=== PATIENT | male | born 1990 | race African-American/Black ===

== ENCOUNTER 2016-10-21 02:03 | Emergency (ER) | payer SELFPAY ==
[2016-10-21 02:04] VITALS: BP 141/84; PULSE 57; RESP 16; TEMP 98.4; O2SAT 99
--- NOTE | 2016-10-21 03:34 | PD ---
HPI Chief Complaint: Psychiatric Symptoms Time Seen by Provider: 03:33 Travel History International Travel<30 days: No Contact w/Intl Traveler<30days: No Traveled to known affect area: No History of Present Illness HPI 25-year-old male with no significant medical history and no psychiatric history presents to the emergency department for evaluation of depression. Patient states he's been under a lot of stress lately and is been feeling down. States that his mother has depression and he believes that he may need to take some medication to help with his depression. He has no suicidal or homicidal ideations. States there is no possibility that he would ever want to hurt himself. He was just hoping to come in the emergency department and get started on antidepressant to help him get out of this mood. He has no other symptoms to report at this time. [facility] Past Medical History Medical History: Denies Significant Hx Tetanus Vaccination: < 5 Years Influenza Vaccination: No Past Surgical History Surgical History: No Previous Surgery Social History Alcohol Use: No Tobacco Use: Yes (1 ppd) Substance Use: No Allergies-Medications (Allergen,Severity, Reaction): Coded Allergies: No Known Allergies (Verified , 01/29/16) Reported Meds & Prescriptions Reported Meds & Active Scripts Active Review of Systems Except as stated in HPI: all other systems reviewed are Neg Physical Exam Narrative GENERAL: Well-nourished male patient, in no acute distress SKIN: Focused skin assessment warm/dry. HEAD: Atraumatic. Normocephalic. EYES: Pupils equal and round. No scleral icterus. No injection or drainage. ENT: No nasal bleeding or discharge. Mucous membranes pink and moist. NECK: Trachea midline. No JVD. CARDIOVASCULAR: Regular rate and rhythm. No murmur appreciated. RESPIRATORY: No accessory muscle use. Clear to auscultation. Breath sounds equal bilaterally. GASTROINTESTINAL: Abdomen soft, non-tender, nondistended. Hepatic and splenic margins not palpable. MUSCULOSKELETAL: No obvious deformities. No clubbing. No cyanosis. No edema. NEUROLOGICAL: Awake and alert. No obvious cranial nerve deficits. Motor grossly within normal limits. Normal speech. PSYCHIATRIC: Flat affect; insight and judgment normal. Data Data Last Documented VS Vital Signs Date Time Temp Pulse Resp B/P Pulse Ox O2 Delivery O2 Flow Rate FiO2 10/21/16 02:04 98.4 57 16 141/84 99 Room Air MDM Medical Decision Making Medical Screen Exam Complete: Yes Emergency Medical Condition: Yes Medical Record Reviewed: Yes Differential Diagnosis Depression versus adjustment reaction disorder versus mood disorder versus personality disorder Narrative Course 25-year-old male presents to [facility] department for evaluation. Patient appears without distress. He is requesting someone to talk to about his depression. Adamantly denies suicidal or homicidal ideations. I explained the patient that we would not be started him on antidepressants here in the emergency department as we will not be following up with him. He is provided a resource packet to contact for outpatient follow-up. He agrees to return immediately with any acute worsening of symptoms. Diagnosis Primary Impression: Depressed Qualified Code: F32.9 - Reactive depression Referrals: [facility] (Out patient) [facility] Patient Instructions: Depression (ED), General Instructions Additional Instructions: Utilize outpatient resource packet for follow-up in regards to your depression Return immediately with any acute worsening of symptoms Med/Other Pt SpecificInfo: No Change to Meds Scripts No Active Prescriptions or Reported Meds Disposition: 01 DISCHARGE HOME Condition: Stable Amy Osman October 21, 2016 03:34
== END 2016-10-21 03:42 | disposition home or self-care (01) ==
LOC: NEPD 02:03
DX: F32.9 Major depressive disorder, single episode, unspecified (principal); F17.210 Nicotine dependence, cigarettes, uncomplicated
CPT/HCPCS: 99284

== ENCOUNTER 2017-07-24 18:37 | Emergency (ER) | payer OTHER ==
[~2017-07-24] VITALS: Ht 188 cm; Wt 68.0 kg
[2017-07-24 18:46] VITALS: BP 160/81; PULSE 91; RESP 20; TEMP 99.4; O2SAT 98
[2017-07-24] MEDS ORDERED: IBUPROFEN 800 MG TAB PO ONE (19:15)
[2017-07-24] MEDS ORDERED: TETANUS/DIPHTHERIA TOXOID ADULT 0.5 ML VIAL IM ONE (19:15)
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
[2017-07-24] MEDS ORDERED: IBUP1TAB7 PO (20:14)
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
== END 2017-07-24 20:52 ==
LOC: NEPD 18:37
DX: S01.111A Laceration without foreign body of right eyelid and periocular area, initial encounter (principal); S05.11XA Contusion of eyeball and orbital tissues, right eye, initial encounter; S80.211A Abrasion, right knee, initial encounter; W19.XXXA Unspecified fall, initial encounter; Z23 Encounter for immunization
CPT/HCPCS: 12011; 70450; 70486; 72125; 90471; 90714

== ENCOUNTER 2017-11-26 18:06 | Emergency (ER) | payer SELFPAY ==
[~2017-11-26] VITALS: Ht 185.4 cm; Wt 75.0 kg
[~2017-11-26 18:06] MED LIST: IBUP1TAB7 PO
[2017-11-26 18:20] VITALS: BP 113/71; PULSE 103; RESP 16; O2SAT 96
[2017-11-26 18:49] VITALS: TEMP 98.8
[2017-11-26 19:36] VITALS: PULSE 90; RESP 16
--- NOTE | 2017-11-26 19:39 | PD ---
HPI Chief Complaint: Pain: Acute or Chronic Time Seen by Provider: 18:42 Travel History International Travel<30 days: No Contact w/Intl Traveler<30days: No Traveled to known affect area: No History of Present Illness HPI 26-year-old male presents to the emergency department with complaint of right great toe pain and tingling that has been coming and going for the past 2-3 weeks. Denies injury. Says it is a "deep pain." Denies redness, swelling of the toe or foot. Denies fever, vomiting. Is ambulatory on the affected extremity. Has not taken any medications or try any treatments to alleviate his symptoms. Rates pain 3/10. Describes it as deep. Pain is spontaneous and there is no known aggravating factors. Says hot showers seems to make it feel better. He has no primary care provider. No known allergies. Denies significant past medical history. Has no other medical complaints. No other modifying factors or associated signs and symptoms. History Social History Alcohol Use: No Tobacco Use: Yes (1 ppd) Allergies-Medications (Allergen,Severity, Reaction): Coded Allergies: No Known Allergies (Verified Adverse Reaction, Unknown, 11/26/17) Reported Meds & Prescriptions Reported Meds & Active Scripts Active No Active Prescriptions or Reported Medications Review of Systems Except as stated in HPI: all other systems reviewed are Neg Physical Exam Narrative GENERAL: Well-nourished, well-developed black male patient, in no acute distress SKIN: Warm and dry. HEAD: Atraumatic. Normocephalic. EYES: Pupils equal and round. No scleral icterus. No injection or drainage. ENT: Mucosa pink and moist. Airway patent. NECK: Trachea midline. CARDIOVASCULAR: Regular rate. RESPIRATORY: No accessory muscle use. GASTROINTESTINAL: Flat MUSCULOSKELETAL: Right great toe and foot is without erythema, edema, ecchymosis ; toe is with full range of motion and sensory intact; toe is pink and warm; with full flexion and extension and good opposition; with tenderness on palpation. Toenail is intact and there are no signs of infection. No obvious deformities. No clubbing. No cyanosis. No edema. NEUROLOGICAL: Awake and alert. Oriented 3. No obvious cranial nerve deficits. Motor grossly within normal limits. Normal speech. PSYCHIATRIC: Appropriate mood and affect; insight and judgment normal. Data Data Last Documented VS Vital Signs Date Time Temp Pulse Resp B/P (MAP) Pulse Ox O2 Delivery O2 Flow Rate FiO2 11/26/17 18:49 98.8 11/26/17 18:20 103 16 113/71 (85) 96 MDM Medical Screen Exam Complete: Yes Emergency Medical Condition: No Differential Diagnosis Toe pain Narrative Course 26-year-old male with right great toe pain. There are no open wounds. There are no signs of infection. Patient denies injury. I do not suspect fracture dislocation and feel that imaging is necessary at this time. Vital signs are stable and the patient is stable for outpatient follow-up and treatment. The patient has no urgent or emergent medical complaints. There is no emergent or urgent medical need at this time. I instructed the patient to follow up with their primary care provider. A medical screening exam was performed: At the time of evaluation the presenting medical condition was determined not to be of an emergent nature. The patient was given the option of receiving additional care, but declined. Patient was given options for additional community resources from which to obtain care. The Patient Has Been advised to seek medical attention for their presenting complaint. The patient has been advised to return to the ER at any time if an emergent condition develops. Primary Impression: Encounter for medical screening examination Scripts No Active Prescriptions or Reported Meds Condition: Stable Corazon Hodges Nov 26, 2017 19:39
== END 2017-11-26 19:43 | disposition left against medical advice (07) ==
LOC: NEPK 18:06
DX: M79.674 Pain in right toe(s) (principal); R20.2 Paresthesia of skin; F17.200 Nicotine dependence, unspecified, uncomplicated
CPT/HCPCS: 99281